=== PATIENT | female | born 1960 | race African-American/Black ===

== ENCOUNTER 2017-04-28 15:20 | Emergency (ER) | payer MEDICARE ==
[~2017-04-28] VITALS: Ht 152.4 cm; Wt 91.6 kg
[~2017-04-28 15:20] MED LIST: AZIT250T6 PO; DOXY100T PO; HYDR-971 PO; INSU100I13 SQ; INSU100I17 SQ; INSU100I27 SQ; IPRA3AMP NEB; LISI10TA2 PO; MUPI22OI2 TP; PRED1TAB3 PO; VENTOLIN HFA18 GM INH
[2017-04-28 15:24] VITALS: BP 135/56
[2017-04-28] MEDS ORDERED: CYCLOBENZAPRINE 10 MG TABLET. PO ONE (15:45)
[2017-04-28] MEDS ORDERED: HYDROcodone/APAP 5/325MG 1 TAB TABLET PO ONE (15:45)
--- NOTE | 2017-04-28 16:15 | PHYS DOC ---
Past Medical History Past Medical History: Asthma, COPD, Diabetes-Type I, Hypertension, Other Additional Past Medical Histor: back pain, leg pain Past Surgical History: Cholecystectomy, , Other Additional Past Surgical Histo: LT knee, LT ankle Alcohol Use: None Drug Use: None Adult General Chief Complaint Chief Complaint: MECHANICAL FALL HPI HPI Patient is a 56 year old female with a history of diabetes type 1, hypertension , COPD, who presents with pain on her left shoulder and left knee and left lateral ribs after falling down yesterday. Patient denies any loss of consciousness. Review of Systems Review of Systems Constitutional: Denies fever or chills [] Eyes: Denies change in visual acuity, redness, or eye pain [] HENT: Denies nasal congestion or sore throat [] Respiratory: left lateral rib pain Cardiovascular: No additional information not addressed in HPI [] GI: Denies abdominal pain, nausea, vomiting, bloody stools or diarrhea [] : Denies dysuria or hematuria [] Musculoskeletal: Left shoulder pain,, left knee pain. Integument: Denies rash or skin lesions [] Neurologic: Denies headache, focal weakness or sensory changes [] Endocrine: Denies polyuria or polydipsia [] Current Medications Current Medications Current Medications Medications (Trade) Dose Ordered Sig/Elvira Start Time Stop Time Status Last Admin Dose Admin Acetaminophen/ Hydrocodone Bitart (Lortab 5/325) 2 tab 1X ONCE 04/28/17 15:45 04/28/17 15:46 DC 04/28/17 15:47 2 TAB Cyclobenzaprine HCl (Flexeril) 10 mg 1X ONCE 04/28/17 15:45 04/28/17 15:46 DC 04/28/17 15:46 10 MG Allergies Allergies Allergies Coded Allergies Type Severity Reaction Last Updated Verified Penicillins Allergy Intermediate 04/13/16 Yes iodine Allergy Intermediate 04/13/16 Yes Physical Exam Physical Exam Constitutional: Well developed, well nourished, no acute distress, non-toxic appearance. [] HENT: Normocephalic, atraumatic, bilateral external ears normal, oropharynx moist, no oral exudates, nose normal. [] Eyes: PERRLA, EOMI, conjunctiva normal, no discharge. [] Neck: Normal range of motion, no tenderness, supple, no stridor. [] Cardiovascular:Heart rate regular rhythm, no murmur [] Lungs & Thorax: No bruising or ecchymosis noted on the left ribs. Bilateral breath sounds clear to auscultation tenderness on palpation of the left lateral ribs mid axillary line ribs 5 through 7. Abdomen: Bowel sounds normal, soft, no tenderness, no masses, no pulsatile masses. [] Skin: Warm, dry, no erythema, no rash. [] Back: No tenderness, no CVA tenderness. [] Extremities: Left shoulder with no edema and no ecchymosis no obvious deformity. Tenderness on palpation of the left proximal humerus. Full range of motion to the left shoulder. Adequate abduction and adduction of the left shoulder. Adequate plantar flexion and dorsiflexion of the left forearm. Adequate radial medial and ulnar sensation to the left upper extremity. +2 left radial pulse. Left knee with no obvious edema and obvious ecchymosis. Full range of motion to the left knee. Negative Stiven sign and negative Philipp's sign negative anterior-posterior drawer sign to the left knee. +2 left pedal pulse. Neurologic: Alert and oriented X 3, normal motor function, normal sensory function, no focal deficits noted. [] Psychologic: Affect normal, judgement normal, mood normal. [] Current Patient Data Vital Signs Vital Signs Date Time Temp Pulse Resp B/P (MAP) Pulse Ox O2 Delivery O2 Flow Rate FiO2 04/28/17 15:47 18 Room Air 04/28/17 15:24 98.5 92 96 98.5 EKG EKG [] Radiology/Procedures Radiology/Procedures []PROCEDURE: KNEE LEFT 4V EXAM: Left knee, 4 views HISTORY: Fall. Left knee pain. COMPARISON: None. FINDINGS: No fractures are identified. There is moderate osteophytosis and joint space narrowing along the medial compartment. Alignment is normal. There is no joint effusion. IMPRESSION: 1. Moderate medial compartmental osteoarthritis. DICTATED and SIGNED BY: JERSON GUAJARDO MD DATE: 04/28/17 7534 CC: GILBERT GOMES MD; SINA SCHMIDT APRN; NON,STAFF ~ PROCEDURE: RIBS LEFT AND PA CHEST EXAM: 1. Frontal chest with three-view left rib series. 2. Left shoulder 3 views. HISTORY: Fall with left shoulder and chest pain. COMPARISON: 03/23/2016. FINDINGS: There are no confluent infiltrates. There is no pneumothorax or pleural effusion. The heart is not enlarged. There are no displaced left rib fractures. No fractures are seen at the left shoulder. Glenohumeral and acromioclavicular joint spaces and alignment are maintained. IMPRESSION: 1. No confluent infiltrates. 2. No fracture. DICTATED and SIGNED BY: JERSON GUAJARDO MD DATE: 04/28/17 161 CC: GILBERT GOMES MD; SINA SCHMIDT APRN; BETI,STAFF ~ PROCEDURE: SHOULDER 2+V LEFT EXAM: 1. Frontal chest with three-view left rib series. 2. Left shoulder 3 views. HISTORY: Fall with left shoulder and chest pain. COMPARISON: 03/23/2016. FINDINGS: There are no confluent infiltrates. There is no pneumothorax or pleural effusion. The heart is not enlarged. There are no displaced left rib fractures. No fractures are seen at the left shoulder. Glenohumeral and acromioclavicular joint spaces and alignment are maintained. IMPRESSION: 1. No confluent infiltrates. 2. No fracture. DICTATED and SIGNED BY: JERSON GAUJARDO MD DATE: 04/28/171625 CC: GILBERT GOMES MD; SINA SCHMIDT APRN; BETI,STAFF ~ Course & Med Decision Making Course & Med Decision Making Pertinent Labs and Imaging studies reviewed. (See chart for details) Patient is in the ED with complaints of left shoulder and left ribs and left knee pain after falling. X-rays of the left shoulder and left lateral ribs/PA chest interpreted by radiologist are negative for any acute findings. X-ray of the left knee was negative for any acute findings but was noted for DJD. Patient was discharged with Voltaren cream, Robaxin and Ultram. She is to follow -up with her own PCP or the provided orthopedic doctor in one week. Dragon Disclaimer Dragon Disclaimer This electronic medical record was generated, in whole or in part, using a voice recognition dictation system. Departure Departure Impression: Primary Impression: Fall from standing Additional Impressions: Contusion of left shoulder Contusion of rib on left side Contusion of left knee Disposition: HOME, SELF-CARE Condition: STABLE Referrals: GILBERT GOMES MD (PCP) Follow-up with your doctor in one week AMY FIGUEROA II, MD You can follow-up with orthopedic doctor provided in one week Patient Instructions: Contusion, Fall Prevention and Home Safety Additional Instructions: You were seen for left shoulder contusion, left lateral rib contusion and left knee contusion after falling. Ice and elevate the affected regions. Follow-up with the provided orthopedic doctor or your own doctor in one week. Use the medications provided as ordered. Scripts Methocarbamol (ROBAXIN) 500 Mg Tablet 1 TAB PO TID, #25 TAB Prov: SINA SCHMIDT APRN 04/28/17 Tramadol Hcl (ULTRAM) 50 Mg Tablet 1 TAB PO Q6HRS, #30 TAB Prov: SINA SCHMIDT APRN 04/28/17 Diclofenac Sodium (VOLTAREN) 100 Gm Gel..gram. 1 GM TP QID, #100 GM 2 Refills Prov: SINA SCHMIDT APRN 04/28/17 Problem Qualifiers Primary Impression: Fall from standing Encounter type: initial encounter Qualified Codes: W19.XXXA - Unspecified fall, initial encounter Additional Impressions: Contusion of left shoulder Encounter type: initial encounter Qualified Codes: S40.012A - Contusion of left shoulder, initial encounter Contusion of rib on left side Encounter type: initial encounter Qualified Codes: S20.212A - Contusion of left front wall of thorax, initial encounter Contusion of left knee Encounter type: initial encounter Qualified Codes: S80.02XA - Contusion of left knee, initial encounter SINA SCHMIDT APRN Apr 28, 2017 16:15
--- NOTE | 2017-04-28 16:22 | RAD ---
EXAM: 1. Frontal chest with three-view left rib series. 2. Left shoulder 3 views. HISTORY: Fall with left shoulder and chest pain. COMPARISON: 03/23/2016. FINDINGS: There are no confluent infiltrates. There is no pneumothorax or pleural effusion. The heart is not enlarged. There are no displaced left rib fractures. No fractures are seen at the left shoulder. Glenohumeral and acromioclavicular joint spaces and alignment are maintained. IMPRESSION: 1. No confluent infiltrates. 2. No fracture.
--- NOTE | 2017-04-28 16:23 | RAD ---
EXAM: Left knee, 4 views HISTORY: Fall. Left knee pain. COMPARISON: None. FINDINGS: No fractures are identified. There is moderate osteophytosis and joint space narrowing along the medial compartment. Alignment is normal. There is no joint effusion. IMPRESSION: 1. Moderate medial compartmental osteoarthritis.
[2017-04-28] MEDS ORDERED: DICL100G18 TP (16:43)
[2017-04-28] MEDS ORDERED: TRAM-48 PO (16:43)
[2017-04-28] MEDS ORDERED: METH-37 PO (16:43)
== END 2017-04-28 16:53 | disposition home or self-care (01) ==
LOC: ER 15:20
DX: S40.012A Contusion of left shoulder, initial encounter (principal); S20.212A Contusion of left front wall of thorax, initial encounter; S80.02XA Contusion of left knee, initial encounter; J44.9 Chronic obstructive pulmonary disease, unspecified; E10.9 Type 1 diabetes mellitus without complications; I10 Essential (primary) hypertension; Z90.49 Acquired absence of other specified parts of digestive tract; Z88.0 Allergy status to penicillin; Z91.041 Radiographic dye allergy status; W18.30XA Fall on same level, unspecified, initial encounter; Y93.89 Activity, other specified; Y92.89 Other specified places as the place of occurrence of the external cause; Y99.8 Other external cause status
CPT/HCPCS: 71101; 73030; 73564; 99284

== ENCOUNTER 2018-05-01 10:44 | Emergency (ER) | payer OTHER, MEDICARE ==
[2018-05-01 11:58] LABS: POC GLUCOSE 391 mg/dL (70-99)
[2018-05-01] MEDS: HYDROcodone/APAP 5/325MG 1 TAB TABLET PO (11:59)
[2018-05-01] MEDS: INSULIN REGULAR 100 UNIT/ML 3ML VIAL. SQ (12:15)
[2018-05-01 13:01] LABS: POC GLUCOSE 386 mg/dL (70-99)
== END 2018-05-01 13:22 | disposition home or self-care (01) ==
LOC: ER 10:44
DX: S46.912A Strain of unspecified muscle, fascia and tendon at shoulder and upper arm level, left arm, initial encounter (principal); E11.9 Type 2 diabetes mellitus without complications; I10 Essential (primary) hypertension; J44.9 Chronic obstructive pulmonary disease, unspecified; Z88.0 Allergy status to penicillin; Z91.041 Radiographic dye allergy status; X58.XXXA Exposure to other specified factors, initial encounter; Y93.89 Activity, other specified; Y99.8 Other external cause status; Y92.89 Other specified places as the place of occurrence of the external cause
CPT/HCPCS: 29105; 73030; 82962; 96372; 99285-25; J1815

== ENCOUNTER → 2020-10-10 | Outpatient (CLI) | payer MEDICARE, OTHER ==
[2018-05-01 13:22] VITALS: BP 136/82
[~2020-10-10] MED LIST changes: +ACET-704 PO; +CYCL10TA2 PO; +DICL100G54 TP; +HYDR-3164 PO; -HYDR-971 PO; -IPRA3AMP NEB; +IPRA3AMP29 NEB; +METH-37 PO; +TRAM-48 PO
--- NOTE | 2020-10-10 17:55 | RAD ---
Examination: 1. Bilateral digital diagnostic mammogram. 2. Limited right breast ultrasound. INDICATION: 60-year-old woman due for screening presents with a reported palpable lump in the right breast on physical exam by her referring clinician. Patient reports intermittently able to identify a palpable finding in this area but is unable to find it currently. COMPARISON: None. This will serve as a new baseline. Last mammogram greater than 10 years ago. TECHNIQUE: CC and MLO views of both breasts were obtained with 2-D and 3-D technique and reviewed with computer-aided detection. Targeted ultrasound of the right breast in the area of palpable concern as well as sonographic survey of the subareolar breast and axilla was performed. FINDINGS: Heterogeneously dense breast parenchyma. Negative bilateral mammogram with no dominant mass, suspicious calcifications or definite architectural distortion in the area of palpable concern. Targeted ultrasound of the area as reported by the patient's revealed dense fibroglandular tissue with no shadowing, distortion, or mass. Sonographic survey of the right axilla revealed a few right axillary lymph nodes with mild effacement of the central fatty hilum. No adenopathy by size criteria. No rounded lymph nodes. IMPRESSION: Benign reactive right axillary lymph nodes with no suspicious mammographic or sonographic findings. Recommend clinical management which should include biopsy if there are any clinically suspicious findings. In the absence of any clinically suspicious findings, close clinical follow-up is suggested with consideration of short-term imaging follow-up if appropriate. Otherwise, annual screening in one year is recommended. BI-RADS Category 2 Benign findings Clinical management recommended. Patient entered into a reminder system with targeted due date for next mammogram Electronically signed by: Anthony Smith MD (10/10/2020 5:52 PM) [id number]
== END ==
LOC: MAMMO 12:41
PROVIDERS: ATTEND Pediatrics
DX: N64.4 Mastodynia (principal)
CPT/HCPCS: 76641; 77066; G0279; 77062

== ENCOUNTER → 2022-01-15 | Outpatient (CLI) | payer MEDICARE ==
[2021-12-16 17:22] VITALS: BP 158/58
[~2022-01-15] MED LIST changes: +CYCL10TA19 PO; -CYCL10TA2 PO; +INSU100V8 SQ; +LISI10TA16 PO; -LISI10TA2 PO
--- NOTE | 2022-01-15 14:11 | RAD ---
Bilateral digital screening 2-D and 3-D (digital breast tomosynthesis) mammogram: Reason for examination: Routine screening. Comparison: Mammogram from 10/10/2020. Interpretation was made with the benefit of CAD. FINDINGS: Breast density: Category B. There are scattered areas of fibroglandular density. No suspicious breast mass, malignant appearing calcifications, or architectural distortion is seen. IMPRESSION: No evidence of malignancy. Assessment: BI-RADS 1. Negative. Recommendation: Routine screening mammograms. The patient will receive a letter with the results in the mail. Patient information will be entered i nto the mammography reminder system with a target recall date for the next mammogram. A reminder juan er will be generated. Electronically signed by: Cierra Barrera MD (01/15/2022 2:09 PM) [id number]
== END ==
LOC: MAMMO 10:54
PROVIDERS: ATTEND Pediatrics
DX: Z12.31 Encounter for screening mammogram for malignant neoplasm of breast (principal)
CPT/HCPCS: 77063; 77067